=== PATIENT | female | born 1950 | race Caucasian/White ===

== ENCOUNTER → 2017-09-21 | Outpatient (CLI) | payer MEDICARE, OTHER ==
[~2017-09-21] MED LIST: CIPRO 500MG TA500 MG PO; FLAGYL500 MG; NORCO 325 MG-51 TAB PO
== END ==
LOC: MC.RAD 09-10 13:00
DX: Z12.31 Encounter for screening mammogram for malignant neoplasm of breast (principal)

== ENCOUNTER 2018-09-20 15:47 | Inpatient (IN) | payer MEDICARE, OTHER ==
[2018-09-20] VITALS (76 sets, daily range): BP systolic 168; BP diastolic 88; PULSE 72; TEMP 98.7; O2SAT 61–100
[~2018-09-20] VITALS: Ht 162.6 cm; Wt 100.8 kg
[2018-09-20 16:28] LABS: BASO % 0.6 % (0.0-2.0); EOS # 0.2 (0.0-0.7); EOS % 2.3 % (0-4.0); GRAN # 4.8 (1.4-6.5); GRAN % 74.4 % (42.2-75.2); HEMOGLOBIN 12.6 g/dl (12.5-16.0); LYMPH # 1.1 (1.2-3.4); LYMPH % 16.4 % (20.0-51.0); MEAN CELL VOLUME 86 fl (80.0-100.0); MEAN CORPUSCULAR HEMOGLOBIN 28 pg (27.0-31.0); MEAN CORPUSCULAR HGB CONC 32 g/dl (33.0-37.0); MONO # 0.4 (0.1-0.6); PLATELET COUNT 203 K/mm3 (130-400); RED BLOOD COUNT 4.55 M/mm3 (4.10-5.30); REDCELL DISTRIBUTION WIDTH-CV 14.8 % (11.5-14.5)
[2018-09-20 16:43] LABS: ALANINE AMINOTRANSFERASE 27 U/L (9-52); ALBUMIN 4.1 gm/dL (3.5-5.0); ALKALINE PHOSPHATASE 101 U/L (50-136); ANION GAP 7 mmol/L (7-16); AST,SGOT 16 U/L (15-37); BILIRUBIN,TOTAL 0.5 mg/dL (0.0-1.0); BLOOD UREA NITROGEN 12 mg/dL (7-17); C-REACTIVE PROTEIN 1.3 mg/dL (0.0-0.9); CARBON DIOXIDE 28 mmol/L (22-30); CHLORIDE 103 mmol/L (98-107); CREATININE, serum 0.82 mg/dL (0.52-1.25); GLUCOSE 122 mg/dL (74-106); POTASSIUM 3.9 mmol/L (3.4-5.0); SODIUM 138 mmol/L (137-145); TOTAL PROTEIN 7.6 gm/dL (6.4-8.2)
[2018-09-20 16:54] LABS: TROPONIN-I < 0.012 ng/mL (0.000-0.034)
[2018-09-20] MEDS ORDERED: ZOFRAN 4MG T4 MG/TAB PO (16:54)
[2018-09-20] MEDS ORDERED: COREG 6.256.25 MG/TA PO (16:55)
[2018-09-20] MEDS ORDERED: PROTONIX 40MG T40 MG PO (16:56)
[2018-09-20] MEDS ORDERED: PRINIVIL5 MG PO (16:57)
[2018-09-20] MEDS ORDERED: FENTANYL 12MCG TD (16:58)
[2018-09-20 17:28] LABS: COLLECTION METHOD CLEAN CATCH
[2018-09-20 17:36] LABS: MUCOUS Present /lpf; PH 7 (5-8); SQUAMOUS EPITHELIAL 0-2 /hpf; URINE APPEARANCE Clear; URINE BACTERIA None Seen /hpf; URINE BILIRUBIN Negative (NEGATIVE); URINE BLOOD Negative (NEGATIVE); URINE COLOR Yellow; URINE GLUCOSE Negative (NEGATIVE); URINE KETONE 1+ (NEGATIVE); URINE LEUKOCYTE ESTERASE Negative (NEGATIVE); URINE NITRATE Negative (NEGATIVE); URINE PROTEIN(semi-quant) 1+ (NEGATIVE); URINE RBC 0-2 /hpf; URINE UROBILINOGEN Negative (NEGATIVE)
[2018-09-20 21:03] LABS: TROPONIN-I < 0.012 ng/mL (0.000-0.034)
[2018-09-20] MEDS ORDERED: SENOKOT S 50 MG1 TAB PO (21:38)
[2018-09-20] MEDS ORDERED: MIRALAX PA17 GM/Dose PO (21:38)
[2018-09-20] MEDS ORDERED: MULTI VITAMINS1 TAB PO (21:39)
[2018-09-20] MEDS ORDERED: TURMERIC500 MG PO (21:40)
[2018-09-20] MEDS ORDERED: COD LIVER OIL1 CAP PO (21:40)
[2018-09-21] VITALS (851 sets, daily range): BP systolic 157–184; BP diastolic 73–83; PULSE 75–95; TEMP 97.7–99.4; O2SAT 90–100
[2018-09-21 05:50] LABS: BASO % 0.4 % (0.0-2.0); GRAN # 6.9 (1.4-6.5); GRAN % 84.3 % (42.2-75.2); HEMOGLOBIN 12.1 g/dl (12.5-16.0); LYMPH # 0.9 (1.2-3.4); LYMPH % 11.1 % (20.0-51.0); MEAN CELL VOLUME 84 fl (80.0-100.0); MEAN CORPUSCULAR HEMOGLOBIN 28 pg (27.0-31.0); MEAN CORPUSCULAR HGB CONC 33 g/dl (33.0-37.0); MEAN PLATELET VOLUME 10.5 fl (7.4-10.4); MONO # 0.3 (0.1-0.6); MONO % 3.3 % (1.7-9.3); PLATELET COUNT 210 K/mm3 (130-400); RED BLOOD COUNT 4.36 M/mm3 (4.10-5.30); REDCELL DISTRIBUTION WIDTH-CV 15.3 % (11.5-14.5)
[2018-09-21 06:01] LABS: BILIRUBIN,TOTAL 0.4 mg/dL (0.0-1.0); CALCIUM 9.4 mg/dL (8.4-10.2); CREATININE, serum 0.66 mg/dL (0.52-1.25); POTASSIUM 3.5 mmol/L (3.4-5.0); TOTAL PROTEIN 7.2 gm/dL (6.4-8.2)
[2018-09-21 06:03] LABS: HEMATOCRIT 36.7 % (37.0-47.0)
[2018-09-22] VITALS (241 sets, daily range): BP systolic 161–182; BP diastolic 69–86; PULSE 72–81; TEMP 97.9–98.8; O2SAT 94–100
[2018-09-22 05:34] LABS: BASO % 0.2 % (0.0-2.0); EOS % 0.1 % (0-4.0); GRAN # 8.8 (1.4-6.5); GRAN % 79.2 % (42.2-75.2); HEMOGLOBIN 11.6 g/dl (12.5-16.0); LYMPH # 1.3 (1.2-3.4); LYMPH % 11.6 % (20.0-51.0); MEAN CELL VOLUME 86 fl (80.0-100.0); MEAN CORPUSCULAR HEMOGLOBIN 28 pg (27.0-31.0); MEAN CORPUSCULAR HGB CONC 33 g/dl (33.0-37.0); MEAN PLATELET VOLUME 10.3 fl (7.4-10.4); MONO # 0.9 (0.1-0.6); MONO % 8.3 % (1.7-9.3); PLATELET COUNT 211 K/mm3 (130-400); RED BLOOD COUNT 4.14 M/mm3 (4.10-5.30)
[2018-09-22 05:37] LABS: HEMATOCRIT 35.6 % (37.0-47.0)
[2018-09-22 05:48] LABS: CALCIUM 9.1 mg/dL (8.4-10.2); CREATININE, serum 0.66 mg/dL (0.52-1.25); MAGNESIUM 2.1 mg/dL (1.6-2.3); POTASSIUM 3.5 mmol/L (3.4-5.0)
[2018-09-23 04:46] VITALS: BP 167/67; PULSE 80
[2018-09-23 08:29] VITALS: BP 157/79; PULSE 77; TEMP 98.6
[2018-09-23 09:00] LABS: BASO # 0.1 (0.0-0.2); BASO % 0.5 % (0.0-2.0); CALCIUM 9.1 mg/dL (8.4-10.2); CREATININE, serum 0.71 mg/dL (0.52-1.25); EOS # 0.1 (0.0-0.7); EOS % 1.2 % (0-4.0); GRAN # 7.9 (1.4-6.5); GRAN % 74.1 % (42.2-75.2); HEMATOCRIT 38.4 % (37.0-47.0); HEMOGLOBIN 12.8 g/dl (12.5-16.0); LYMPH # 1.6 (1.2-3.4); MAGNESIUM 1.9 mg/dL (1.6-2.3); MEAN CELL VOLUME 83 fl (80.0-100.0); MEAN CORPUSCULAR HEMOGLOBIN 28 pg (27.0-31.0); MEAN CORPUSCULAR HGB CONC 33 g/dl (33.0-37.0); MEAN PLATELET VOLUME 10.9 fl (7.4-10.4); MONO # 0.9 (0.1-0.6); MONO % 8.5 % (1.7-9.3); PLATELET COUNT 194 K/mm3 (130-400); POTASSIUM 3.3 mmol/L (3.4-5.0); RED BLOOD COUNT 4.61 M/mm3 (4.10-5.30); REDCELL DISTRIBUTION WIDTH-CV 15.7 % (11.5-14.5)
[2018-09-23 13:00] VITALS: BP 181/68; PULSE 83; TEMP 98.9
[2018-09-23 16:36] VITALS: BP 182/85; PULSE 83; TEMP 98.7
[2018-09-23 17:52] VITALS: BP 152/70
[2018-09-23 20:04] VITALS: BP 140/62; PULSE 64; TEMP 99.3
[2018-09-24 00:06] VITALS: BP 156/67; PULSE 85
[2018-09-24 03:08] VITALS: BP 156/66; PULSE 76
[2018-09-24 06:04] LABS: BASO # 0.1 (0.0-0.2); BASO % 0.4 % (0.0-2.0); EOS # 0.3 (0.0-0.7); EOS % 2.2 % (0-4.0); GRAN # 8.1 (1.4-6.5); GRAN % 70.1 % (42.2-75.2); HEMATOCRIT 39.9 % (37.0-47.0); HEMOGLOBIN 13.5 g/dl (12.5-16.0); LYMPH % 17.6 % (20.0-51.0); MEAN CELL VOLUME 82 fl (80.0-100.0); MEAN CORPUSCULAR HEMOGLOBIN 28 pg (27.0-31.0); MEAN CORPUSCULAR HGB CONC 34 g/dl (33.0-37.0); MEAN PLATELET VOLUME 9.8 fl (7.4-10.4); PLATELET COUNT 247 K/mm3 (130-400); RED BLOOD COUNT 4.84 M/mm3 (4.10-5.30)
[2018-09-24 06:16] LABS: CALCIUM 9.4 mg/dL (8.4-10.2); CREATININE, serum 0.77 mg/dL (0.52-1.25); POTASSIUM 3.5 mmol/L (3.4-5.0)
[2018-09-24 08:23] VITALS: BP 153/86; PULSE 80; TEMP 98.5
[2018-09-24] MEDS ORDERED: PRINIVIL20 MG PO (12:37)
[2018-09-24] MEDS ORDERED: COREG 25MG25 MG/TAB PO (12:37)
[2018-09-24] MEDS ORDERED: CORDARONE200 MG/TAB PO (13:08)
[2018-09-24] MEDS ORDERED: NORVASC 10MG10 MG PO (13:08)
[2018-09-24] MEDS ORDERED: HCTZ 25MG TAB25 MG PO (13:08)
[2018-09-24 13:09] VITALS: BP 138/76
[2018-09-24] MEDS ORDERED: TRANSDERM-0.5 MG/21 TD (13:09)
[2018-09-24] MEDS ORDERED: ZOFRAN 4MG T4 MG/TAB PO (13:09)
== END 2018-09-24 13:45 | disposition home or self-care (01) | DRG 305 ==
LOC: COL.ER 15:47 → ICU 18:34 → MEDICAL 09-22 21:59
PROVIDERS: Emergency Medicine; Internal Medicine; Nurse Practitioner Family; Physician Assistant
DX: I16.0 Hypertensive urgency (principal); I47.2 Ventricular tachycardia; I50.22 Chronic systolic (congestive) heart failure; I42.0 Dilated cardiomyopathy; I11.0 Hypertensive heart disease with heart failure; Z95.810 Presence of automatic (implantable) cardiac defibrillator; R11.2 Nausea with vomiting, unspecified
CPT/HCPCS: OP; 99223-AI; 99233-AI; 99239; C9113; G0378; G8987-GO; G8988-GO; J0360; J0780; J1650; J2060; J2405; J2550; J3475; J7030

== ENCOUNTER 2019-02-06 15:12 | Outpatient (RCR) | payer MEDICARE, OTHER ==
[~2019-02-06 15:12] MED LIST changes: +COD LIVER OIL1 CAP PO; +CORDARONE200 MG/TAB PO; +COREG 25MG25 MG/TAB PO; +COREG 6.256.25 MG/TA PO; +FENTANYL 12MCG TD; +HCTZ 25MG TAB25 MG PO; +MIRALAX PA17 GM/Dose PO; +MULTI VITAMINS1 TAB PO; +NORVASC 10MG10 MG PO; +PRINIVIL20 MG PO; +PRINIVIL5 MG PO; +PROTONIX 40MG T40 MG PO; +SENOKOT S 50 MG1 TAB PO; +TRANSDERM-0.5 MG/21 TD; +TURMERIC500 MG PO; +ZOFRAN 4MG T4 MG/TAB PO
== END 2019-02-12 | disposition home or self-care (01) ==
LOC: COL.CR
DX: Z48.812 Encounter for surgical aftercare following surgery on the circulatory system (principal); Z95.0 Presence of cardiac pacemaker; I50.20 Unspecified systolic (congestive) heart failure; I42.0 Dilated cardiomyopathy

== ENCOUNTER 2019-04-24 14:38 | Outpatient (RCR) | payer MEDICARE, OTHER | END 2019-04-28 07:44 | disposition home or self-care (01) | LOC: COL.CR 14:38 | DX: Z02.89 Encounter for other administrative examinations (principal) ==

== ENCOUNTER → 2019-09-20 | Outpatient (CLI) | payer MEDICARE, OTHER | LOC: MC.RAD 13:45 | DX: Z12.31 Encounter for screening mammogram for malignant neoplasm of breast (principal) ==

== ENCOUNTER 2020-07-25 08:00 | Outpatient (RCR) | payer MEDICARE, OTHER ==
[~2020-07-25 08:00] MED LIST changes: +DUO-KAPS1 CAP PO; -MULTI VITAMINS1 TAB PO
[2020-08-28] MEDS ORDERED: ASPIRIN 81M81 MG/TA2 PO (20:57)
[2020-08-28] MEDS ORDERED: PRINIVIL20 MG PO (21:17)
[2020-08-30] MEDS ORDERED: COREG 25MG25 MG/TAB PO (10:48)
[2020-09-03] MEDS ORDERED: COREG 25MG25 MG/TAB PO (08:27)
[2020-09-03] MEDS ORDERED: THE MEDICINE S200 M2 PO (08:28)
[2020-09-03] MEDS ORDERED: VITAMIN B122500 MCG SL (08:29)
[2020-09-03] MEDS ORDERED: CRANBERRY FRUI425 MG PO (08:30)
[2020-09-03] MEDS ORDERED: IMDUR 30MG30 MG/TAB PO (08:31)
[2020-09-03] MEDS ORDERED: PRESERVISION1 SGL PO (08:31)
[2020-09-03] MEDS ORDERED: VITAMIND3 5000 PO (08:31)
[2020-09-03] MEDS ORDERED: PROBIOTIC BLEN1 EACH PO (08:32)
[2020-09-03] MEDS ORDERED: ALDACTONE 25MG25 M1 PO (08:32)
[2020-09-03] MEDS ORDERED: AMBIEN 10MG10 MG PO (08:35)
[2020-09-03] MEDS ORDERED: TYLENOL 325MG325 MG PO (08:37)
[2020-09-12] MEDS ORDERED: AMOXICILLIN 8751 TAB PO (11:14)
== END 2020-10-14 | disposition home or self-care (01) ==
LOC: WSPT
DX: M54.42 Lumbago with sciatica, left side (principal)

== ENCOUNTER 2020-08-28 18:05 | Observation (INO) | payer MEDICARE, OTHER ==
[~2020-08-28] VITALS: Ht 162.6 cm; Wt 101.9 kg
[2020-08-28 19:22] LABS: BASO % 0.4 % (0.0-2.0); EOS # 0.1 (0.0-0.7); EOS % 1.2 % (0-4.0); GRAN # 6.2 (1.4-6.5); GRAN % 75.4 % (42.2-75.2); HEMOGLOBIN 10.1 g/dl (12.5-16.0); LYMPH # 1.1 (1.2-3.4); LYMPH % 13.7 % (20.0-51.0); MEAN CELL VOLUME 87 fl (80.0-100.0); MEAN CORPUSCULAR HEMOGLOBIN 28 pg (27.0-31.0); MEAN CORPUSCULAR HGB CONC 32 g/dl (33.0-37.0); MEAN PLATELET VOLUME 11.3 fl (7.4-10.4); MONO # 0.7 (0.1-0.6); MONO % 8.8 % (1.7-9.3); RED BLOOD COUNT 3.66 M/mm3 (4.10-5.30); REDCELL DISTRIBUTION WIDTH-CV 17.3 % (11.5-14.5)
[2020-08-28 19:24] LABS: HEMATOCRIT 31.7 % (37.0-47.0)
[2020-08-28 19:25] LABS: PLATELET COUNT 47 K/mm3 (130-400)
[2020-08-28 19:33] LABS: ALBUMIN 3.3 gm/dL (3.5-5.0); BILIRUBIN,TOTAL 0.6 mg/dL (0.0-1.0); CALCIUM 9.3 mg/dL (8.4-10.2); CREATININE, serum 1.01 (0.52-1.25); POTASSIUM 4.7 mmol/L (3.4-5.0); TOTAL PROTEIN 6.6 gm/dL (6.4-8.2)
[2020-08-28 19:45] LABS: TROPONIN-I 0.015 ng/mL (0.000-0.035)
[2020-08-28 19:59] LABS: COLLECTION METHOD CLEAN CATCH
[2020-08-28 20:09] LABS: MUCOUS Present /lpf; PH 5 (5-8); SQUAMOUS EPITHELIAL 0-2 /hpf; URINE APPEARANCE Hazy; URINE BACTERIA None Seen /hpf; URINE BILIRUBIN Negative (NEGATIVE); URINE BLOOD Negative (NEGATIVE); URINE COLOR Yellow; URINE GLUCOSE Negative (NEGATIVE); URINE KETONE Negative (NEGATIVE); URINE LEUKOCYTE ESTERASE Trace (NEGATIVE); URINE NITRATE Negative (NEGATIVE); URINE PROTEIN(semi-quant) 2+ (NEGATIVE); URINE RBC 0-2 /hpf; URINE UROBILINOGEN Negative (NEGATIVE)
[2020-08-28] MEDS ORDERED: ASPIRIN 81M81 MG/TA2 PO (20:57)
[2020-08-28] MEDS ORDERED: PRINIVIL20 MG PO (21:17)
[2020-08-29 05:00] LABS: CALCIUM 8.7 mg/dL (8.4-10.2); CREATININE, serum 0.94 (0.52-1.25)
[2020-08-29 06:03] LABS: MEAN CELL VOLUME 88 fl (80.0-100.0); MEAN CORPUSCULAR HGB CONC 32 g/dl (33.0-37.0); MEAN PLATELET VOLUME 10.2 fl (7.4-10.4); RED BLOOD COUNT 3.41 M/mm3 (4.10-5.30); REDCELL DISTRIBUTION WIDTH-CV 17.4 % (11.5-14.5)
[2020-08-29 06:10] LABS: HEMATOCRIT 29.9 % (37.0-47.0); HEMOGLOBIN 9.5 g/dl (12.5-16.0); MEAN CORPUSCULAR HEMOGLOBIN 28 pg (27.0-31.0); PLATELET COUNT 43 K/mm3 (130-400)
[2020-08-29 06:54] LABS: BAND 21 % (0-10); EOSINOPHIL 1 % (0-4); LYMPHOCYTE 9 % (20.0-51.0); NEUTROPHILS 62 % (42.0-75.2)
[2020-08-29 06:55] LABS: ANISOCYTOSIS 1+; HYPOCHROMIA 2+
[2020-08-29 08:25] VITALS: BP 123/61; PULSE 81; TEMP 97.7
[2020-08-29 08:27] VITALS: BP 123/61; PULSE 81; TEMP 97.7
[2020-08-29 09:41] LABS: INR 1.1 (0.8-3.0); PROTHROMBIN TIME 12.7 SECONDS (9.7-12.8)
[2020-08-29 09:43] LABS: PARTIAL THROMBOPLASTIN TIME 30.6 SECONDS (26.0-37.0)
--- NOTE | 2020-08-29 10:00 | NUR ---
Admisison assessment completed, alert/oriented, vital signs stable, denies pain at this time, heart RRR, lung CTA/ no reps.difficulty noted at rest, reports malaise for 2-3 weeks, Hematology consulted fro thrombocytopenia and I have spoke with on the phone, patient is independent in her room and denies other needs at this time, meds/allergies/pharm reviewed with patient
[2020-08-29 10:02] LABS: RETIC # 0.06 M/mm3 (0.02-0.16); RETIC % 1.7 % (0.5-3.52)
[2020-08-29 10:34] LABS: IRON,SERUM 53 ug/dL (35-150)
[2020-08-29 10:43] LABS: TOTAL IRON BINDING CAPACITY 265 ug/dL (265-497)
--- NOTE | 2020-08-29 11:02 | NUR ---
[place] Mold Maker met with patient to discuss discharge planning. Patient lives outside of [place] with her , Indra (ph#[phone]) and they run a bed and breakfast/wedding venue. Patient states her , Indra is having surgery in [place] today. Patient took a phone call from Indra during the intake and Indra advised he will still have surgery today although the time was pushed back. Patient sees Dr. Arboleda for primary care and obtains medications from [facility] or [facility] with no difficulties. Patient uses a cane for ambulation due to a pinch nerve in her back. Patient also uses a CPAP at night. Patient states she is very independent with ADLS and plans to return home upon discharge. Patient states she has DPOA-HC which designates her , Indra. Patient reports she has a friend that will pick her up and take her home when she is ready for discharge. SW will continue to follow as needed.
[2020-08-29 11:48] VITALS: BP 111/52; PULSE 83; TEMP 98.2
--- NOTE | 2020-08-29 14:02 | NUR ---
First visit from the petrology teacher. Respiratory Care Practitioner prayed for patient and her . No other needs right now.
[2020-08-29 16:36] VITALS: BP 125/64; PULSE 80; TEMP 98.3
[2020-08-29 17:33] LABS: FOLATE (FOLIC ACID) 17.9 ng/mL (7.0-31.4)
[2020-08-29 18:07] LABS: HAPTOGLOBIN 8 mg/dL (63-273)
--- NOTE | 2020-08-29 20:00 | NUR ---
Assessment complete. Patient complains of pain 3/10 in lower back and PRN Tylenol is adminstered. Order for ambien is obtained from [facility], as patient takes 2.5 mg every night for sleep. Fluids currently infusing. No new concerns, will continue to monitor.
[2020-08-29 21:46] VITALS: BP 113/53; PULSE 78; TEMP 98.2
[2020-08-30 00:44] VITALS: BP 114/41; PULSE 80; TEMP 98.5
--- NOTE | 2020-08-30 02:23 | NUR ---
PATIENT ONLY WANTING OXYGEN AT THIS TIME INSTEAD OF CPAP. HOWEVER IF THEY STAY LONGER WOULD LIKE TO BE SET UP WITH ONE.
[2020-08-30 04:26] VITALS: BP 130/62; PULSE 78; TEMP 98
--- NOTE | 2020-08-30 05:53 | NUR ---
Patient resting in bed. IV fluids infusing. She has had no complaints tonight.
[2020-08-30 07:25] VITALS: BP 109/70; PULSE 80; TEMP 98.7
--- NOTE | 2020-08-30 08:20 | NUR ---
PT PLEASANT, AOX4, REPORTED FEELING A COOL SWEAT WHEN SHE WAS WALKING WITH PT AND FELT "WEIRD". PT THINKS IT WAS BECAUSE SHE DIDN'T EAT BREAKFAST YET, THIS WAS NOT REPORTED UNTIL ASKED DURING ASSESSMENT SO BS NOT OBTAINED AT TIME OF EVENT. PT FEELS BETTER NOW THAT SHES EATEN. PT DENIED DIZZINESS OR WEAKNESS DURING TIME OF EVENT AND NOW AT THIS TIME. MATTHEW DEJESUS CALLED ABOUT PT BORDERLINE BP WITH BP MEDICATION ADMINISTRATION. 2 BP MEDS ON HOLD FOR NOW AND WERE NOT GIVEN. PT ASSESSMENT PERFORMED, VITALS REVIEWED, MEDICATIONS GIVEN, NO OTHER NEEDS AT THIS TIME.
[2020-08-30 09:06] LABS: BASO % 0.3 % (0.0-2.0); EOS # 0.1 (0.0-0.7); EOS % 0.7 % (0-4.0); GRAN # 7.2 (1.4-6.5); GRAN % 82.6 % (42.2-75.2); LYMPH # 0.9 (1.2-3.4); LYMPH % 10.7 % (20.0-51.0); MEAN CELL VOLUME 88 fl (80.0-100.0); MEAN CORPUSCULAR HGB CONC 31 g/dl (33.0-37.0); MEAN PLATELET VOLUME 11.1 fl (7.4-10.4); MONO # 0.4 (0.1-0.6); MONO % 5.1 % (1.7-9.3); RED BLOOD COUNT 3.45 M/mm3 (4.10-5.30); REDCELL DISTRIBUTION WIDTH-CV 17.3 % (11.5-14.5)
[2020-08-30 09:08] LABS: HEMATOCRIT 30.5 % (37.0-47.0); HEMOGLOBIN 9.4 g/dl (12.5-16.0); MEAN CORPUSCULAR HEMOGLOBIN 27 pg (27.0-31.0)
[2020-08-30 09:09] LABS: PLATELET COUNT 40 K/mm3 (130-400)
[2020-08-30 09:13] LABS: CALCIUM 9.1 mg/dL (8.4-10.2); CREATININE, serum 0.87 (0.52-1.25); POTASSIUM 4.5 mmol/L (3.4-5.0)
[2020-08-30] MEDS ORDERED: COREG 25MG25 MG/TAB PO (10:48)
--- NOTE | 2020-08-30 12:01 | NUR ---
DISCHARGE EDUCATION PROVIDED, IV IN RH DISCONTINUED. PT VERBALIZED UNDERSTANDING ON DISCHARGE INSTRUCTIONS. PT DRESSED, PT BELONGINGS GATHERED. NO OTHER NEEDS AT THIS TIME.
--- NOTE | 2020-08-30 12:14 | NUR ---
PT ESCORTED OUT VIA WHEELCHAIR WITH BELONGINGS AND DISCHARGE PAPERWORK.
--- NOTE | 2020-08-30 12:55 | NUR ---
Disc Pad Plate Filler attended clinical rounds with the team. Patient to discharge home today and will follow up with Dr. Tinoco. No needs identified at this time.
== END 2020-08-30 12:15 | disposition home or self-care (01) ==
LOC: COL.ER 18:05 → MEDICAL 20:22
PROVIDERS: Family Medicine; Hospitalist; Physician Assistant; Student in an Organized Health Care Education/Training Program; ADMIT Internal Medicine
DX: D69.6 Thrombocytopenia, unspecified (principal); K92.1 Melena; I42.9 Cardiomyopathy, unspecified; I11.0 Hypertensive heart disease with heart failure; I50.22 Chronic systolic (congestive) heart failure; G47.33 Obstructive sleep apnea (adult) (pediatric); D64.9 Anemia, unspecified; Z79.82 Long term (current) use of aspirin; M19.90 Unspecified osteoarthritis, unspecified site; Z88.8 Allergy status to other drugs, medicaments and biological substances; I07.1 Rheumatic tricuspid insufficiency
CPT/HCPCS: 99223-AI; 99239; G0378; J2405; J7030; Q9967

== ENCOUNTER → 2020-10-15 | Outpatient (CLI) | payer MEDICARE, OTHER ==
[~2020-10-15] MED LIST changes: +ALDACTONE 25MG25 M1 PO; +AMBIEN 10MG10 MG PO; +AMOXICILLIN 8751 TAB PO; +ASPIRIN 81M81 MG/TA2 PO; +CRANBERRY FRUI425 MG PO; +IMDUR 30MG30 MG/TAB PO; +PRESERVISION1 SGL PO; +PROBIOTIC BLEN1 EACH PO; +THE MEDICINE S200 M2 PO; +TYLENOL 325MG325 MG PO; +VITAMIN B122500 MCG SL; +VITAMIND3 5000 PO
== END ==
LOC: COL.RAD 07:43
DX: A49.1 Streptococcal infection, unspecified site (principal); M54.5 Low back pain
CPT/HCPCS: A9585

== ENCOUNTER → 2020-10-17 | Outpatient (CLI) | payer MEDICARE, OTHER | LOC: COL.RAD 10:34 | DX: A49.1 Streptococcal infection, unspecified site (principal); M48.061 Spinal stenosis, lumbar region without neurogenic claudication ==

== ENCOUNTER 2020-11-04 15:30 | Inpatient (IN) | payer MEDICARE, OTHER ==
[~2020-11-04] VITALS: Ht 160 cm; Wt 95.5 kg
[~2020-11-04 15:30] MED LIST changes: +VITAMIN B122500 MCG PO; -VITAMIN B122500 MCG SL
[2020-11-04 17:01] LABS: BASO # 0.1 (0.0-0.2); BASO % 0.4 % (0.0-2.0); EOS % 0.1 % (0-4.0); GRAN # 16.8 (1.4-6.5); GRAN % 84.4 % (42.2-75.2); HEMOGLOBIN 10.8 g/dl (12.5-16.0); LYMPH # 1.4 (1.2-3.4); LYMPH % 7.1 % (20.0-51.0); MEAN CELL VOLUME 89 fl (80.0-100.0); MEAN CORPUSCULAR HEMOGLOBIN 28 pg (27.0-31.0); MEAN CORPUSCULAR HGB CONC 31 g/dl (33.0-37.0); MEAN PLATELET VOLUME 10.4 fl (7.4-10.4); MONO # 1.4 (0.1-0.6); MONO % 7.2 % (1.7-9.3); PLATELET COUNT 119 K/mm3 (130-400); RED BLOOD COUNT 3.88 M/mm3 (4.10-5.30); REDCELL DISTRIBUTION WIDTH-CV 14.7 % (11.5-14.5)
[2020-11-04 17:15] LABS: ALANINE AMINOTRANSFERASE 12 U/L (4-34); ALBUMIN 3.6 gm/dL (3.5-5.0); ALKALINE PHOSPHATASE 77 U/L (50-136); ANION GAP 8 mmol/L (7-16); AST,SGOT 17 U/L (15-37); BILIRUBIN,TOTAL 1.1 mg/dL (0.0-1.0); BLOOD UREA NITROGEN 22 mg/dL (7-17); CALCIUM 9.3 mg/dL (8.4-10.2); CARBON DIOXIDE 25 mmol/L (22-30); CHLORIDE 102 mmol/L (98-107); CREATININE, serum 1.17 (0.52-1.25); GLUCOSE 132 mg/dL (74-106); LIPASE 22 U/L (23-300); SODIUM 135 mmol/L (137-145); TOTAL PROTEIN 7.2 gm/dL (6.4-8.2)
[2020-11-04 17:21] LABS: HEMATOCRIT 34.6 % (37.0-47.0)
[2020-11-04 17:26] LABS: C-REACTIVE PROTEIN > 27.0 mg/dL (0.0-0.9); TROPONIN-I < 0.012 ng/mL (0.000-0.035)
[2020-11-04 17:57] LABS: COLLECTION METHOD CLEAN CATCH
[2020-11-04 18:11] LABS: HYALINE CAST >12 /lpf; MUCOUS Present /lpf; PH 5 (5-8); RED BLOOD CELL CAST >12 /lpf; URINE APPEARANCE Cloudy; URINE BACTERIA Rare /hpf; URINE BILIRUBIN Negative (NEGATIVE); URINE BLOOD 1+ (NEGATIVE); URINE COLOR Amber; URINE GLUCOSE Negative (NEGATIVE); URINE KETONE Trace (NEGATIVE); URINE LEUKOCYTE ESTERASE Negative (NEGATIVE); URINE NITRATE Negative (NEGATIVE); URINE PROTEIN(semi-quant) 2+ (NEGATIVE); URINE RBC 20-50 /hpf; URINE UROBILINOGEN >=4.0 mg/dL (NEGATIVE)
[2020-11-04] MEDS ORDERED: ALDACTONE 25MG25 M1 PO (20:44)
[2020-11-04] MEDS ORDERED: PRINIVIL40 MG PO (20:44)
[2020-11-04] MEDS ORDERED: AMOXICILLIN 8751 TAB PO ×2 (20:46)
--- NOTE | 2020-11-04 21:30 | NUR ---
Received patient from ED. Informed Xochitl CASTRO that patient is in the room already. She is alert and oriented. She is independent. She did urinate upon transfer to the room. She is complaining of pain on her ribs that radiates in her back. She is on room air. Informed Xochitl that ER nurse said that there are no tele boxes anymore.
[2020-11-04 21:57] VITALS: BP 155/64; PULSE 114; TEMP 101
--- NOTE | 2020-11-04 22:00 | NUR ---
Vital signs taken. Patient is febrile with temp of 101F. Instructed patient that I will swab her for the covid test and respiratory virus panel. She verbalizes understanding. Provided patient with ice water and crackers. With IV on left wrist started on NS at 100ml/hr. Asked patient if she wants Melatonin and she said that doesn't work for her and she takes Ambien half tablet only. Informed Xochitl CASTRO regarding febrile episode and change of order for the Ambien.
--- NOTE | 2020-11-04 23:00 | NUR ---
Vancomycin Initial Dosing Pharmacy Note Ordering provider: Mine Fonseca MD Indication/duration: HAP - 7 days Relevant comorbidities: HTN/HFpEF LABS: WBC = 19.9, SCr = 1.17 Recommendation: Will draw troughs and follow levels. Loading dose: 1.5 grams Maintenance dose: 1 gram every 12 hours Trough goal: 15-20 ug/mL
[2020-11-04 23:20] VITALS: BP 142/51; PULSE 106; TEMP 99.2
[2020-11-05 03:38] VITALS: BP 118/55; PULSE 92; TEMP 97.8
--- NOTE | 2020-11-05 06:24 | NUR ---
Patient still with complains of pain. Assisted her to the bathroom and she said that whenever she would move the pain would come back or would worsen. Informed her that her next pain medicine can be given at 0740H. Patient states pain right now was at 5/10.
[2020-11-05 08:35] VITALS: BP 138/65; PULSE 94; TEMP 97.8
--- NOTE | 2020-11-05 09:11 | NUR ---
Assessmen complete. Patient sitting up in bed awake and alert at this time. Reports pain with breathing at this time, PRN Jasper provided for this. Patient ambulated to the restroom, this was painful but she did well. IV site is CD&I, working well at this time. Patient is aware of her POC. O2 was removed by RT as patient was satting 98% on 2L, she continues to sat well on RA. Will continue to monitor. Call light is in reach.
[2020-11-05 09:14] LABS: MEAN CELL VOLUME 92 fl (80.0-100.0); MEAN CORPUSCULAR HGB CONC 30 g/dl (33.0-37.0); MEAN PLATELET VOLUME 10.6 fl (7.4-10.4); PLATELET COUNT 109 K/mm3 (130-400); RED BLOOD COUNT 3.57 M/mm3 (4.10-5.30); REDCELL DISTRIBUTION WIDTH-CV 14.9 % (11.5-14.5)
[2020-11-05 09:18] LABS: HEMOGLOBIN 9.8 g/dl (12.5-16.0); MEAN CORPUSCULAR HEMOGLOBIN 27 pg (27.0-31.0)
[2020-11-05 09:19] LABS: HEMATOCRIT 32.8 % (37.0-47.0)
[2020-11-05 09:23] LABS: ALBUMIN 3.1 gm/dL (3.5-5.0); BILIRUBIN,TOTAL 1.3 mg/dL (0.0-1.0); CALCIUM 8.6 mg/dL (8.4-10.2); CREATININE, serum 0.97 (0.52-1.25); TOTAL PROTEIN 6.5 gm/dL (6.4-8.2)
[2020-11-05 09:56] LABS: BAND 10 % (0-10); EOSINOPHIL 1 % (0-4); LYMPHOCYTE 8 % (20.0-51.0); NEUTROPHILS 77 % (42.0-75.2)
[2020-11-05 09:57] LABS: PLATELET ESTIMATE DECREASED (NORMAL)
[2020-11-05 09:59] LABS: HYPOCHROMIA 1+
[2020-11-05 11:36] VITALS: BP 109/53; PULSE 88; TEMP 97.9
--- NOTE | 2020-11-05 11:47 | NUR ---
The patient is a PUI for COVID and awaiting results. SW contacted the patient to discuss discharge plan. The patient lives in [place] with her , Indra (ph#[phone]). She reports independence with ADLs and has a cane. The patient's PCP is Dr. Brian Arboleda and [facility] She reports no difficulties obtaining her meds. The patient does not have a DPOA-HC in EMR, but she states that she does have one completed and that her is her DPOA-HC. The patient plans to return home with her upon discharge. She is currently on 2 liters of oxygen. SW to continue to follow.
[2020-11-05 15:39] VITALS: BP 107/51; PULSE 90; TEMP 97.9
--- NOTE | 2020-11-05 17:58 | NUR ---
Patient has had an uneventful shift. Main complaints continues to be the pain in her ribs with respirations, PRN norco was provided when requested. Physician is aware of this pain and orders have been placed for additional pain medications. Patient is comfortable at this time. Continuing to montior. Call light is in reach.
--- NOTE | 2020-11-05 19:05 | NUR ---
Received report from Elaina. Seen patient awake in bed. She was doing her incentive spirometry. She's requesting for pain medicine and Ambien to be given when I go back for her night meds. Asked patient if she wants to try the Morphine or I will give the [place]. She is worried about Morphine as she haven't tried it before but she says that [place] doesn't work for her. Informed her that only 1mg of Morphine will be given. She agreed to try the Morphine. Her pain score is 5/10.
[2020-11-05 20:37] VITALS: BP 115/64; PULSE 89; TEMP 97.4
--- NOTE | 2020-11-05 20:50 | NUR ---
Assesment done. On O2 at 2lpm via NC. She said that she feels like her IV is leaking. Checked patency of IV and changed dressing. IV still working, flushes well and with back flow. Assisted patient to the bathroom.
[2020-11-05 23:56] VITALS: BP 112/66; PULSE 90; TEMP 97.4
[2020-11-06 03:26] VITALS: BP 117/59; PULSE 93; TEMP 97.6
--- NOTE | 2020-11-06 04:40 | NUR ---
Transferred patient to . 314. Covid PCR came back negative. She still with pain but scoring at 5-6/10. She did have some cough right now. Encouraged her to drink more fluids.
[2020-11-06 09:09] LABS: ALBUMIN 2.8 gm/dL (3.5-5.0); BILIRUBIN,TOTAL 1.1 mg/dL (0.0-1.0); CALCIUM 8.6 mg/dL (8.4-10.2); CREATININE, serum 1.07 (0.52-1.25); TOTAL PROTEIN 5.9 gm/dL (6.4-8.2)
[2020-11-06 09:12] LABS: MEAN CORPUSCULAR HGB CONC 32 g/dl (33.0-37.0); MEAN PLATELET VOLUME 10.9 fl (7.4-10.4); PLATELET COUNT 109 K/mm3 (130-400); RED BLOOD COUNT 3.37 M/mm3 (4.10-5.30); REDCELL DISTRIBUTION WIDTH-CV 15.1 % (11.5-14.5)
[2020-11-06 09:33] VITALS: BP 101/53; PULSE 100; TEMP 98.7
[2020-11-06 10:14] LABS: HEMATOCRIT 29.3 % (37.0-47.0); HEMOGLOBIN 9.5 g/dl (12.5-16.0); MEAN CORPUSCULAR HEMOGLOBIN 28 pg (27.0-31.0)
[2020-11-06 10:15] LABS: MEAN CELL VOLUME 87 fl (80.0-100.0)
[2020-11-06 11:08] LABS: BAND 7 % (0-10); LYMPHOCYTE 6 % (20.0-51.0); NEUTROPHILS 78 % (42.0-75.2)
[2020-11-06 11:11] LABS: TOXIC GRANULATION PRESENT
[2020-11-06 11:12] LABS: PLATELET ESTIMATE DECREASED (NORMAL)
[2020-11-06 11:54] VITALS: BP 133/54; PULSE 96; TEMP 99
[2020-11-06 17:59] VITALS: BP 148/60; PULSE 100; TEMP 99.3
--- NOTE | 2020-11-06 18:52 | NUR ---
Patient alert and oriented. complained of pleuritic, shoulder and back pain. patient recieved norco, morphine, tylenol for pain. wbc 17.7. on room air, denies shortness of air. applied heating pad to shoulder to help ease pain. patient verbalize "heating pad is effective". informed patient to continue using Incentive spirometry. Patient have no further concern or queston at this time.
[2020-11-06 19:09] VITALS: BP 132/59; PULSE 102; TEMP 98.9
[2020-11-06 23:07] VITALS: BP 138/71; PULSE 93; TEMP 98.1
--- NOTE | 2020-11-07 01:01 | NUR ---
PATIENT IS ALERT AND ORIENTED. HELPED ASSIST PATIENT TO BATHROOM TO VOID AND PATIENT WANTED TO SIT IN CHAIR. SHE STILL IS HAVING SOME PLEURITIC PAIN BUT THE NORCO BROUGHT PAIN DOWN. PATIENT IS ON 2 L O2 NC BECAUSE SHE DOES NOT HAVE HER CIPAP WHICH SHE NORMALLY USES AT HOME. WILL CONTINUE TO MONITOR PATIENTS COMFORT LEVEL.
[2020-11-07 03:22] VITALS: BP 145/63; PULSE 98; TEMP 98.2
--- NOTE | 2020-11-07 05:49 | NUR ---
Patient resting comfortably in bed this morning. Pain is controlled with Hydrocodone. Patient is still on 2l O2 NC because her CIPAP machine is not here. Call light within reach.
[2020-11-07 07:53] LABS: MEAN CELL VOLUME 90 fl (80.0-100.0); MEAN CORPUSCULAR HGB CONC 31 g/dl (33.0-37.0); MEAN PLATELET VOLUME 10.9 fl (7.4-10.4); PLATELET COUNT 110 K/mm3 (130-400); RED BLOOD COUNT 3.13 M/mm3 (4.10-5.30); REDCELL DISTRIBUTION WIDTH-CV 15.5 % (11.5-14.5)
[2020-11-07 07:55] LABS: HEMATOCRIT 28.3 % (37.0-47.0); HEMOGLOBIN 8.8 g/dl (12.5-16.0); MEAN CORPUSCULAR HEMOGLOBIN 28 pg (27.0-31.0)
[2020-11-07 07:57] VITALS: BP 126/61; PULSE 98; TEMP 98.1
[2020-11-07 08:05] LABS: ALBUMIN 2.7 gm/dL (3.5-5.0); BILIRUBIN,TOTAL 1.1 mg/dL (0.0-1.0); CALCIUM 8.7 mg/dL (8.4-10.2); CREATININE, serum 1.08 (0.52-1.25); POTASSIUM 3.8 mmol/L (3.4-5.0); TOTAL PROTEIN 5.9 gm/dL (6.4-8.2)
[2020-11-07] MEDS ORDERED: LEVAQUIN 750MG750 M1 PO (11:23)
[2020-11-07] MEDS ORDERED: VENTOLIN0.09 MG IH (11:34)
[2020-11-07] MEDS ORDERED: ROBITUSSIN DM 105 ML PO (11:34)
--- NOTE | 2020-11-07 11:40 | NUR ---
SW attended clinical rounds. The patient is to discharge back home with her today, 11/07. SW met with the patient and presented and read the IM form outloud to her. The patient verbalized understanding and gave SW approval to sign the form on her behalf. SW provided her with a copy. No additional needs at this time.
[2020-11-07 12:47] VITALS: BP 146/61; PULSE 94; TEMP 98
--- NOTE | 2020-11-07 14:00 | NUR ---
INT discontinued. Patient report cough became less productive, with mild improvement. patient was started on new home medications Levofloxacin, Albuterol and Robitussin. patient was provided information on new medication, discharge instruction on pneumonia, followup appointment with PCP and blood count recheck in a week. Patient discharged home with spouse. no further concern at this time.
== END 2020-11-07 14:30 | disposition home or self-care (01) | DRG 871 ==
LOC: COL.ER 15:30 → MEDICAL 19:30
PROVIDERS: Nurse Practitioner Primary Care; Physician Assistant; ADMIT Student in an Organized Health Care Education/Training Program
DX: A41.9 Sepsis, unspecified organism (principal); J18.9 Pneumonia, unspecified organism; I50.32 Chronic diastolic (congestive) heart failure; I42.9 Cardiomyopathy, unspecified; Z20.822 Contact with and (suspected) exposure to COVID-19; R07.81 Pleurodynia; I11.0 Hypertensive heart disease with heart failure; G47.33 Obstructive sleep apnea (adult) (pediatric); G47.00 Insomnia, unspecified; D69.6 Thrombocytopenia, unspecified; D64.9 Anemia, unspecified; R53.81 Other malaise; E04.1 Nontoxic single thyroid nodule; Z95.810 Presence of automatic (implantable) cardiac defibrillator
CPT/HCPCS: 99223-AI; 99232-AI; 99239; A9284; J1650; J1885; J1956; J2270; J2405; J2543; J3010; J3370; J7030; J7050; Q9967

== ENCOUNTER 2020-11-30 13:15 | Inpatient (IN) | payer MEDICARE, OTHER ==
[2020-11-30] VITALS (441 sets, daily range): BP systolic 116; BP diastolic 83; PULSE 86–135; TEMP 98.9; O2SAT 89–100
[~2020-11-30] VITALS: Ht 160 cm; Wt 94.8 kg
[~2020-11-30 13:15] MED LIST changes: +LEVAQUIN 750MG750 M1 PO; +PRINIVIL40 MG PO; +ROBITUSSIN DM 105 ML PO; +VENTOLIN0.09 MG IH
[2020-11-30 13:33] LABS: HEMOGLOBIN 11.1 g/dl (12.5-16.0); MEAN CELL VOLUME 86 fl (80.0-100.0); MEAN CORPUSCULAR HEMOGLOBIN 27 pg (27.0-31.0); MEAN CORPUSCULAR HGB CONC 31 g/dl (33.0-37.0); PLATELET COUNT 562 K/mm3 (130-400); RED BLOOD COUNT 4.14 M/mm3 (4.10-5.30); REDCELL DISTRIBUTION WIDTH-CV 15.6 % (11.5-14.5)
[2020-11-30 13:47] LABS: ALBUMIN 3.3 gm/dL (3.5-5.0); BILIRUBIN,TOTAL 0.8 mg/dL (0.0-1.0); CALCIUM 9.2 mg/dL (8.4-10.2); CREATININE, serum 0.86 (0.52-1.25); POTASSIUM 3.7 mmol/L (3.4-5.0); TOTAL PROTEIN 7.2 gm/dL (6.4-8.2)
[2020-11-30 14:04] LABS: TROPONIN-I 0.228 ng/mL (0.000-0.035)
[2020-11-30 14:05] LABS: HEMATOCRIT 35.5 % (37.0-47.0)
[2020-11-30 14:19] LABS: TSH w REFLEX 1.38 uIU/mL (0.465-4.680)
[2020-11-30 14:46] LABS: BAND 6 % (0-10); EOSINOPHIL 7 % (0-4); LYMPHOCYTE 11 % (20.0-51.0); METAMYELOCYTE 1 % (0-0); NEUTROPHILS 66 % (42.0-75.2)
[2020-11-30 15:02] LABS: HYPOCHROMIA 2+; PLATELET ESTIMATE INCREASED (NORMAL)
[2020-11-30 15:03] LABS: ANISOCYTOSIS 1+
[2020-11-30] MEDS ORDERED: ZOVIRAX400 MG PO (15:10)
[2020-11-30] MEDS ORDERED: ELIQUIS 5MG PO (15:11)
[2020-11-30] MEDS ORDERED: NATURAL C500 MG PO (15:12)
[2020-11-30] MEDS ORDERED: TESSALON P100 MG/CAP PO (15:13)
[2020-11-30] MEDS ORDERED: ASPIRIN 81M81 MG/TA2 PO (15:13)
[2020-11-30] MEDS ORDERED: BUMEX2 MG PO (15:14)
[2020-11-30] MEDS ORDERED: ABREVA10% TOP (15:16)
[2020-11-30] MEDS ORDERED: CULTURELLE1 EAC1 PO (15:17)
[2020-11-30 15:18] LABS: CALCIUM 9.1 mg/dL (8.4-10.2); CREATININE, serum 0.77 (0.52-1.25); POTASSIUM 3.7 mmol/L (3.4-5.0)
[2020-11-30] MEDS ORDERED: MYCAMINE50 MG IV ×2 (15:20→16:37)
[2020-11-30] MEDS ORDERED: SENNA-S 50 MG-81 TAB PO (15:21)
[2020-11-30] MEDS ORDERED: WOMEN'S DAILY1 TAB PO (15:21)
--- NOTE | 2020-11-30 16:24 | NUR ---
PT ADMITTED FROM ED WITH AFIB. PT ON CARDIZEM 15ML/HR. PT TRANSFERED TO BED. PT IS AXOX4. PT ON RA. PT SHOWING AFIB 110-140'S ON TELE. PT DENIES CP BUT DOES HAVE SOME LIGHTHEADEDNESS WITH STANDING. PT HAS A SINGLE LUMEN PICC FROM [facility]. PT HAS MIDSTERNAL INCISION WITH NO DRAINING. PT ORIENTED TO ROOM AND FLOOR. WILL CONTINUE TO [facility].
--- NOTE | 2020-11-30 16:30 | NUR ---
PT IS WEARING A LIFEVEST WHICH SHE WAS DISCHARGED FROM WITH 11/29. PT PREVIOUSLY HAD A PACER/AICD AND IT WAS RECENTLY REMOVED. PT SCHEDULED TO HAVE A NEW AICD PLACED 12/13.
[2020-11-30] MEDS ORDERED: ROCEPHIN 2GM VIAL21 IJ (16:36)
[2020-11-30] MEDS ORDERED: ROXICODONE 55 MG/TAB PO (17:33)
[2020-11-30 18:32] LABS: MAGNESIUM 2.1 mg/dL (1.6-2.3)
[2020-11-30 18:51] LABS: COLLECTION METHOD CLEAN CATCH
[2020-11-30 18:57] LABS: C-REACTIVE PROTEIN 13.1 mg/dL (0.0-0.9)
--- NOTE | 2020-11-30 19:03 | NUR ---
PT HAS APPEARED TO HAVE CONVERTED TO SR IN THE 'S. TAYLOR CASTRO ON UNIT AND NOTIFIED. DILT DECREASED TO 5MG/HR. EKG ORDERED AND RT NOTIFIED. PT NOTIFIED AND SHE STATES SHE FEELS MUCH BETTER.
[2020-11-30 19:08] LABS: MUCOUS Present /lpf; PH 6 (5-8); SQUAMOUS EPITHELIAL 0-2 /hpf; URINE APPEARANCE Clear; URINE BACTERIA None Seen /hpf; URINE BILIRUBIN Negative (NEGATIVE); URINE BLOOD Negative (NEGATIVE); URINE COLOR Yellow; URINE GLUCOSE Negative (NEGATIVE); URINE KETONE Negative (NEGATIVE); URINE LEUKOCYTE ESTERASE Negative (NEGATIVE); URINE NITRATE Negative (NEGATIVE); URINE PROTEIN(semi-quant) Negative (NEGATIVE); URINE UROBILINOGEN Negative (NEGATIVE)
[2020-12-01] VITALS (1335 sets, daily range): BP systolic 97–144; BP diastolic 62–80; PULSE 79–85; TEMP 97.7–98.6; O2SAT 79–100
--- NOTE | 2020-12-01 04:00 | NUR ---
Patient has been in sinus rhythem throughout my shift. She converted at shift change. Her amioderone drip finished around midnight and cardizam finished at 0400. I asked Guerda CASTRO if she'd think it's appropriate to continue any further cardiac drips and she looked at the patient's EKG and tele strips. She tried looking in her notes to see what Cardiology reccomended but she wasn't getting a hold of them. She told me to continue monitoring the patient. Patient is stable and asymtomatic. She is currently in sinus rhythem.
[2020-12-01 04:45] LABS: HEMATOCRIT 30.4 % (37.0-47.0); HEMOGLOBIN 9.6 g/dl (12.5-16.0); MEAN CELL VOLUME 85 fl (80.0-100.0); MEAN CORPUSCULAR HEMOGLOBIN 27 pg (27.0-31.0); MEAN CORPUSCULAR HGB CONC 32 g/dl (33.0-37.0); MEAN PLATELET VOLUME 9.1 fl (7.4-10.4); PLATELET COUNT 479 K/mm3 (130-400); RED BLOOD COUNT 3.59 M/mm3 (4.10-5.30); REDCELL DISTRIBUTION WIDTH-CV 15.8 % (11.5-14.5)
[2020-12-01 04:57] LABS: ALBUMIN 2.9 gm/dL (3.5-5.0); BILIRUBIN,TOTAL 0.6 mg/dL (0.0-1.0); CALCIUM 8.6 mg/dL (8.4-10.2); CREATININE, serum 0.77 (0.52-1.25); POTASSIUM 3.3 mmol/L (3.4-5.0); TOTAL PROTEIN 6.3 gm/dL (6.4-8.2)
--- NOTE | 2020-12-01 06:09 | NUR ---
Patient was converted to Sinus Rhythem during shift change, around 715pm. She maintained Sinus rhythm with prolonged QT intervals. Nghia BLAKE, who was overwatching the Tele monitors tonight mentioned the QT intervals are prolonging. I spoke to Guerda CASTRO and she got a hold of Dr Pascual. She told me the plan is to repeat EKG Q1 hour and to hold any QT prolonging medications such as amioderone. The patients potassium results this morning was 3.3 She had her first dose of oral potassium as she is allergic to IV K+. She is asymptomatic and resting. Her current heart rate is 84 and blood pressure is 110/60.
--- NOTE | 2020-12-01 07:31 | NUR ---
SPOKE TO PT'S REGARDING CURRENT PT STATUS.
--- NOTE | 2020-12-01 14:55 | NUR ---
SW met with patient to conduct intake evaluation. Patient lives at home in [place] with her Indra ([phone]). Patient's DPOA is her Indra. Patient provided SW with information. This was copied and placed in chart. Patient has a cane and uses a CPAP she obtained from [facility]. Patient is independent at home. Patient sees Dr. Arboleda and uses [facility] for pharmacy needs. Patient denies needing assistance with paying for medications. Patient plans to return home when able and then get to for a replacement ICD 3/5. MASK DESIGN ENGINEER stated that patient may transfer directly to [facility], but this plan is not solid. Social work will follow as needs progress.
[2020-12-02] VITALS (1082 sets, daily range): BP systolic 101–121; BP diastolic 60–76; PULSE 80–87; TEMP 97.7–98.6; O2SAT 75–100
[2020-12-02 05:22] LABS: BASO # 0.1 (0.0-0.2); BASO % 0.9 % (0.0-2.0); EOS # 0.3 (0.0-0.7); EOS % 3.7 % (0-4.0); GRAN # 6.2 (1.4-6.5); GRAN % 67.6 % (42.2-75.2); LYMPH # 1.5 (1.2-3.4); LYMPH % 16.7 % (20.0-51.0); MEAN CELL VOLUME 85 fl (80.0-100.0); MEAN CORPUSCULAR HGB CONC 32 g/dl (33.0-37.0); MEAN PLATELET VOLUME 9.4 fl (7.4-10.4); MONO # 0.9 (0.1-0.6); MONO % 9.9 % (1.7-9.3); PLATELET COUNT 503 K/mm3 (130-400); RED BLOOD COUNT 3.59 M/mm3 (4.10-5.30); REDCELL DISTRIBUTION WIDTH-CV 15.7 % (11.5-14.5)
[2020-12-02 05:26] LABS: HEMATOCRIT 30.5 % (37.0-47.0); HEMOGLOBIN 9.6 g/dl (12.5-16.0); MEAN CORPUSCULAR HEMOGLOBIN 27 pg (27.0-31.0)
[2020-12-02 05:37] LABS: CALCIUM 8.9 mg/dL (8.4-10.2); CREATININE, serum 0.84 (0.52-1.25); MAGNESIUM 2.4 mg/dL (1.6-2.3); POTASSIUM 4.3 mmol/L (3.4-5.0)
--- NOTE | 2020-12-02 09:41 | NUR ---
Initial visit; Patient thanked Supervisor Ornamental Ironworking for looking in on her, offering prayer and keeping her in Supervisor Ornamental [employer]working's prayers.
--- NOTE | 2020-12-02 11:30 | NUR ---
NOTIFIED, TRISTEN BLAKE THAT QTC ON EKG WAS 577.
--- NOTE | 2020-12-02 12:30 | NUR ---
Patient recieved a wipe down with some warm bath wipes. Midsternal incision was cleaned with soap and water and CHG and water, as well as her 3 stitches on her lower abdomen under her life vest. Linens were also changed, new gown and new monitoring equipment placed.
--- NOTE | 2020-12-02 20:00 | NUR ---
Patient is resting and her vitals are stable. Her current heart rate is 89, BP is 126/69. Her current QTc is 545.
[2020-12-03] VITALS (217 sets, daily range): BP systolic 119–147; BP diastolic 60–89; PULSE 84–88; TEMP 96.8–98.3; O2SAT 75–99
[2020-12-03 04:20] LABS: BASO # 0.1 (0.0-0.2); BASO % 0.6 % (0.0-2.0); EOS # 0.4 (0.0-0.7); EOS % 4.2 % (0-4.0); GRAN # 6.9 (1.4-6.5); GRAN % 69.8 % (42.2-75.2); LYMPH # 1.5 (1.2-3.4); LYMPH % 15.4 % (20.0-51.0); MEAN CELL VOLUME 86 fl (80.0-100.0); MEAN CORPUSCULAR HGB CONC 31 g/dl (33.0-37.0); MEAN PLATELET VOLUME 8.9 fl (7.4-10.4); MONO # 0.9 (0.1-0.6); MONO % 8.9 % (1.7-9.3); PLATELET COUNT 502 K/mm3 (130-400); RED BLOOD COUNT 3.45 M/mm3 (4.10-5.30)
[2020-12-03 04:21] LABS: HEMATOCRIT 29.8 % (37.0-47.0); HEMOGLOBIN 9.3 g/dl (12.5-16.0); MEAN CORPUSCULAR HEMOGLOBIN 27 pg (27.0-31.0)
[2020-12-03 04:31] LABS: CALCIUM 8.9 mg/dL (8.4-10.2); CREATININE, serum 0.79 (0.52-1.25); MAGNESIUM 2.2 mg/dL (1.6-2.3); POTASSIUM 4.3 mmol/L (3.4-5.0)
--- NOTE | 2020-12-03 09:13 | NUR ---
Rubina, called stating to give PTs sotalol due to QTC not being accurate.
--- NOTE | 2020-12-03 10:51 | NUR ---
Tonya with infusion company calls social work specialist and advises that patient was discharged from on 11/28/2020 and they were providing patient's rocephine 2 grams every 24 hours and mycamine 150 mg every 24 hours for 6 weeks. Patient was being treated for bactremia. Case Management will continue to follow and resume home IV antibioitics as ordered.
--- NOTE | 2020-12-03 12:40 | NUR ---
Tonya from [employer] company: [phone]/fax:[phone].
--- NOTE | 2020-12-03 13:35 | NUR ---
Report given to LOU Agrawal. PT moved from ICU 6 to room 352 via wheelchair without incident.
--- NOTE | 2020-12-03 20:54 | NUR ---
Initial shift assessment done-- denies pain at this time, incision to chest is dry and intact-- edges approximated, states will be sleeping in chair-- more comfortable, VSS
--- NOTE | 2020-12-05 08:46 | NUR ---
(late entry 12/04) Hand Sign Writer met with the patient to discuss discharge. The patient reports that she has [facility] and the [facility] has provided the IV antiobiotics she needs. Antiobiotics are at home in her fridge. The patient reports her will be doing the infusions. The patient discharged home 12/04 with [facility] with continued home IV antioboitics. [facility] providing antibiotics. Hand Sign Writer contacted Terese with [facility] and they confirmed they do have the patient for services and requested new discharge orders for PT/OT/Nursing. Discharge orders faxed. Luis from [facility] contacted this SW regarding the patient's status. CONNIE informed Luis that the patient would discharge on 12/04 and would get IV antiobiotics prior to discharge. CONNIE faxed discharge orders to Luis. There are no additional needs.
[2020-12-05 13:10] LABS: CALCIUM 9.4 mg/dL (8.4-10.2); CREATININE, serum 0.86 (0.52-1.25); MAGNESIUM 2.1 mg/dL (1.6-2.3); POTASSIUM 4.2 mmol/L (3.4-5.0)
[2020-12-05 15:38] LABS: BASO # 0.1 (0.0-0.2); EOS # 0.2 (0.0-0.7); EOS % 2.8 % (0-4.0); GRAN # 5.7 (1.4-6.5); GRAN % 65.7 % (42.2-75.2); HEMATOCRIT 31.5 % (37.0-47.0); HEMOGLOBIN 9.8 g/dl (12.5-16.0); LYMPH # 1.6 (1.2-3.4); LYMPH % 18.5 % (20.0-51.0); MEAN CELL VOLUME 86 fl (80.0-100.0); MEAN CORPUSCULAR HEMOGLOBIN 27 pg (27.0-31.0); MEAN CORPUSCULAR HGB CONC 31 g/dl (33.0-37.0); MEAN PLATELET VOLUME 9.2 fl (7.4-10.4); MONO # 0.9 (0.1-0.6); MONO % 10.8 % (1.7-9.3); PLATELET COUNT 554 K/mm3 (130-400); RED BLOOD COUNT 3.66 M/mm3 (4.10-5.30); REDCELL DISTRIBUTION WIDTH-CV 15.9 % (11.5-14.5)
== END 2020-12-04 18:45 | disposition home or self-care (01) | DRG 390 ==
LOC: COL.ER 13:15 → ICU 14:59 → MEDICAL 12-03 14:34
PROVIDERS: Emergency Medicine; ADMIT Student in an Organized Health Care Education/Training Program
DX: K56.600 Partial intestinal obstruction, unspecified as to cause (principal); D69.6 Thrombocytopenia, unspecified; D64.9 Anemia, unspecified; F17.210 Nicotine dependence, cigarettes, uncomplicated; Z90.710 Acquired absence of both cervix and uterus; Z85.038 Personal history of other malignant neoplasm of large intestine; Z90.49 Acquired absence of other specified parts of digestive tract; Z90.89 Acquired absence of other organs
CPT/HCPCS: 99223-AI; 99233-AI; C9113; J0282; J0348; J0696; J2405; J2997; J3475; J3480; J7040; J7060

== ENCOUNTER → 2020-12-10 | Outpatient (CLI) | payer MEDICARE, OTHER ==
[~2020-12-10] MED LIST changes: +ABREVA10% TOP; +BETAPACE 80MG80 MG PO; +BUMEX2 MG PO; +CULTURELLE1 EAC1 PO; +ELIQUIS 5MG PO; +MYCAMINE50 MG IV; +NATURAL C500 MG PO; +NYAMYC100000 U/G TP; +ROCEPHIN 2GM VIAL21 IJ; +ROXICODONE 55 MG/TAB PO; +SENNA-S 50 MG-81 TAB PO; +TESSALON P100 MG/CAP PO; +WOMEN'S DAILY1 TAB PO; +ZESTRIL 20MG TA20 MG PO; +ZOVIRAX400 MG PO
== END ==
LOC: COL.LAB 10:22
DX: Z20.822 Contact with and (suspected) exposure to COVID-19 (principal)

== ENCOUNTER → 2020-12-10 | Outpatient (CLI) | payer MEDICARE, OTHER | LOC: COL.RAD | DX: J90 Pleural effusion, not elsewhere classified (principal); Z95.828 Presence of other vascular implants and grafts; Z98.890 Other specified postprocedural states ==

== ENCOUNTER 2020-12-25 11:07 | Outpatient (CLI) | payer MEDICARE, OTHER ==
[~2020-12-25] VITALS: Ht 160 cm; Wt 86.9 kg
[~2020-12-25 11:07] MED LIST changes: -BETAPACE 80MG80 MG PO; -NYAMYC100000 U/G TP; -ZESTRIL 20MG TA20 MG PO
[2020-12-25 11:30] VITALS: BP 139/59; PULSE 82; TEMP 98
[2020-12-25] MEDS ORDERED: NYAMYC100000 U/G TP (13:05)
[2020-12-25] MEDS ORDERED: ZESTRIL 20MG TA20 MG PO (13:05)
[2020-12-25] MEDS ORDERED: BETAPACE 80MG80 MG PO (13:06)
== END 2020-12-25 13:16 | disposition home or self-care (01) ==
LOC: EUO 11:07
DX: T82.7XXA Infection and inflammatory reaction due to other cardiac and vascular devices, implants and grafts, initial encounter (principal)

== ENCOUNTER → 2021-12-17 | Outpatient (CLI) | payer MEDICARE, OTHER ==
[~2021-12-17] MED LIST changes: +BETAPACE 80MG80 MG PO; +NYAMYC100000 U/G TP; +ZESTRIL 20MG TA20 MG PO
== END ==
LOC: MC.RAD 07:55
DX: Z12.31 Encounter for screening mammogram for malignant neoplasm of breast (principal)